=== PATIENT | female | born 1955 | race Asian ===

== ENCOUNTER 2018-02-21 17:17 | Emergency (ER) | payer OTHER ==
[~2018-02-21] VITALS: Ht 149.9 cm; Wt 54.5 kg
[2018-02-21] MEDS ORDERED: LISI-662 PO (17:38)
[2018-02-21] MEDS ORDERED: METF-960 PO (17:38)
[2018-02-21 17:44] LABS: GLUCOSE,POINT OF CARE 126 MG/DL (70-110)
[2018-02-21] MEDS ORDERED: ACETAMINOPHEN 500 MG TABLET PO ONE (18:30)
[2018-02-21] MEDS ORDERED: BACITRACIN 0.9 GM PACKET OINTMENT TP ONE (18:30)
[2018-02-21 19:15] VITALS: BP 133/72
== END 2018-02-21 19:39 | disposition home or self-care (01) ==
LOC: EMS 17:19
DX: T22.211A Burn of second degree of right forearm, initial encounter (principal); E11.9 Type 2 diabetes mellitus without complications; I10 Essential (primary) hypertension; Z79.899 Other long term (current) drug therapy; Z79.84 Long term (current) use of oral hypoglycemic drugs; Z86.73 Personal history of transient ischemic attack (TIA), and cerebral infarction without residual deficits; X10.2XXA Contact with fats and cooking oils, initial encounter; Y93.89 Activity, other specified; Y92.89 Other specified places as the place of occurrence of the external cause; Y99.8 Other external cause status

== ENCOUNTER 2021-06-02 17:04 | Inpatient (IN) | payer OTHER ==
[~2021-06-02] VITALS: Ht 157.5 cm; Wt 57.5 kg
[~2021-06-02 17:04] MED LIST: LISI-894 PO; METF-1211 PO
[2021-06-02] MEDS ORDERED: SODIUM CHLORIDE 0.9% 1,000 ML IV ONE (17:15)
[2021-06-02] MEDS ORDERED: ACETAMINOPHEN 500 MG TABLET PO ONE (17:15)
[2021-06-02 17:32] LABS: BASOPHILS % (AUTO) 0.1 % (0.0-2.0); EOSINOPHILS % (AUTO) 0 % (1.0-6.0); HEMATOCRIT 41.4 % (36-46); HEMOGLOBIN 13.9 g/dL (12.0-16.0); LYMPHOCYTES # (AUTO) 1.8 K/uL (1.0-4.8); LYMPHOCYTES % (AUTO) 21.4 % (22.0-44.0); MEAN CORPUSCULAR HEMOGLOBIN 30.7 pg (26.0-34.0); MEAN CORPUSCULAR HGB CONC 33.6 G/dL (31.0-37.0); MEAN CORPUSCULAR VOLUME 91 fL (80-100); MONOCYTES # (AUTO) 0.3 K/uL (0.1-1.0); MONOCYTES % (AUTO) 4.1 % (2.0-9.0); NEUTROPHILS # (AUTO) 6.3 K/uL (1.8-7.7); NEUTROPHILS % (AUTO) 74.4 % (40.0-70.0); PLATELET COUNT (AUTO) 203 K/uL (150-450); RED BLOOD CELL COUNT(AUTO) 4.53 MIL/uL (4.00-5.20)
[2021-06-02 17:34] LABS: COVID AG,FIA SOURCE NASOPHARYNGEAL
[2021-06-02 17:42] LABS: CALCIUM, TOTAL 8.7 mg/dL (8.8-10.5); CREATININE 1.19 mg/dL (0.60-1.30); POTASSIUM 3.5 mmol/L (3.5-5.1)
[2021-06-02 17:43] LABS: APPEARANCE,URINE CLEAR (CLEAR); BILIRUBIN,URINE NEGATIVE (NEGATIVE); GLUCOSE, URINE (UA) NEGATIVE (NEGATIVE); KETONES,URINE NEGATIVE (NEGATIVE); LEUKOCYTE ESTERASE ,URINE NEGATIVE (NEGATIVE); NITRATE,URINE NEGATIVE (NEGATIVE); OCCULT BLOOD,URINE NEGATIVE (NEGATIVE); PH,URINE 7.5 (5.0-8.0); PROTEIN,URINE TRACE mg/dL (NEGATIVE); SPECIFIC GRAVITIY, URINE 1.011 (1.003-1.030); UROBILINOGEN,URINE <=1.0 mg/dL (<=1.0)
[2021-06-02 17:48] LABS: ALBUMIN 3.5 g/dL (3.4-5.0); BILIRUBIN,TOTAL 0.6 mg/dL (0.1-1.0); TOTAL PROTEIN, SERUM 7.7 g/dL (6.4-8.2)
[2021-06-02 17:50] LABS: LACTIC ACID 1.4 mmol/L (0.4-2.0)
[2021-06-02 17:57] LABS: BACTERIA,URINE None Seen /HPF (None Seen); RBC,URINE None Seen /HPF (0-2); SQUAMOUS EPITHELIAL CELL,UR Few /LPF (None Seen); WBC,URINE 0-2 /HPF (0-5)
[2021-06-02] MEDS ORDERED: ACETAMINOPHEN 1000 MG/ISO-OSM 100 ML IV ONE (18:00)
[2021-06-02] MEDS ORDERED: ONDANSETRON HCL 4 MG/2 ML VIAL IVP ONE (18:00)
[2021-06-02] MEDS ORDERED: CefTRIAXone 1 GM/DEXTROSE 50 ML IV ONE (18:15)
[2021-06-02] MEDS ORDERED: AZITHROMYCIN 500 MG/NS 250 ML IV ONE (18:15)
[2021-06-02 18:45] LABS: INFLUENZA TYPE A NEGATIVE FOR TYPE A (NEGATIVE); INFLUENZA TYPE B NEGATIVE FOR TYPE B (NEGATIVE)
[2021-06-02] MEDS ORDERED: ACETAMINOPHEN 325 MG TABLET PO PRN (19:30)
[2021-06-02] MEDS ORDERED: ONDANSETRON HCL 4 MG/2 ML VIAL IVP PRN ×2 (19:30→22:00)
[2021-06-02] MEDS ORDERED: MAGNESIUM HYDROXIDE SUSPENSION 30 ML UDCUP PO PRN (22:00)
[2021-06-02] MEDS ORDERED: IPRATROPIUM BROMIDE 0.5 MG/2.5 ML NEB SOLUTION NEB PRN (22:00)
[2021-06-02] MEDS ORDERED: HYDROCODONE/ACETAMINOPHEN 5-325 MG TABLET PO PRN (22:00)
[2021-06-02] MEDS ORDERED: BISACODYL 10 MG RECTAL RECTAL SUPPOSITORY PR PRN (22:00)
[2021-06-02] MEDS ORDERED: MORPHINE SULFATE 2 MG/ML SYRINGE IVP PRN (22:00)
[2021-06-02] MEDS ORDERED: ZOLPIDEM TARTRATE 5 MG TABLET PO PRN (22:00)
[2021-06-02] MEDS ORDERED: ALBUTEROL SULFATE 2.5 MG/0.5 ML NEB SOLUTION NEB PRN (22:00)
[2021-06-02 22:36] LABS: LACTIC ACID 1.1 mmol/L (0.4-2.0)
[2021-06-02 23:08] VITALS: BP 148/82
[2021-06-03] MEDS: HEPARIN SODIUM,PORCINE 5,000 UNITS/ML VIAL SQ SCH ×4 (00:01→23:43)
[2021-06-03 04:00] VITALS: BP 126/72
[2021-06-03 06:53] LABS: BASOPHILS % (AUTO) 0.2 % (0.0-2.0); EOSINOPHILS % (AUTO) 0.1 % (1.0-6.0); HEMOGLOBIN 13.8 g/dL (12.0-16.0); LYMPHOCYTES # (AUTO) 1.1 K/uL (1.0-4.8); LYMPHOCYTES % (AUTO) 16.4 % (22.0-44.0); MEAN CORPUSCULAR HEMOGLOBIN 30.8 pg (26.0-34.0); MEAN CORPUSCULAR HGB CONC 33.7 G/dL (31.0-37.0); MEAN CORPUSCULAR VOLUME 91 fL (80-100); MONOCYTES # (AUTO) 0.3 K/uL (0.1-1.0); MONOCYTES % (AUTO) 4.6 % (2.0-9.0); NEUTROPHILS # (AUTO) 5.3 K/uL (1.8-7.7); NEUTROPHILS % (AUTO) 78.7 % (40.0-70.0); PLATELET COUNT (AUTO) 193 K/uL (150-450); RED BLOOD CELL COUNT(AUTO) 4.49 MIL/uL (4.00-5.20)
[2021-06-03 06:57] LABS: CALCIUM, TOTAL 7.7 mg/dL (8.8-10.5); CREATININE 0.99 mg/dL (0.60-1.30); POTASSIUM 3.3 mmol/L (3.5-5.1)
[2021-06-03 07:01] LABS: GLUCOMETER DEV NAME(LOC) 5S.2B; GLUCOSE,POINT OF CARE 113 MG/DL (70-110)
[2021-06-03 09:15] VITALS: BP 114/86
[2021-06-03] MEDS: LISINOPRIL 20 MG TABLET PO SCH (09:37)
[2021-06-03] MEDS: PANTOPRAZOLE SODIUM 40 MG/VIAL IVP SCH (09:38)
[2021-06-03 15:03] VITALS: BP 103/66
[2021-06-03] MEDS: CefTRIAXone SODIUM 2 GM in DEXTROSE 5%-WATER 50 ML IV SCH (17:35)
[2021-06-03] MEDS ORDERED: SODIUM CHLORIDE 0.9% 250 ML IV ONE (17:59)
[2021-06-03] MEDS ORDERED: POTASSIUM CHLORIDE 20 MEQ ER TABLET PO ONE (18:45)
[2021-06-03 20:45] VITALS: BP 103/66
[2021-06-03] MEDS: ACETAMINOPHEN 325 MG TABLET PO PRN (21:37)
[2021-06-04] VITALS: BP 104/67
[2021-06-04 05:35] VITALS: BP 99/57
[2021-06-04 06:21] LABS: GLUCOMETER DEV NAME(LOC) 5S.2B; GLUCOSE,POINT OF CARE 200 MG/DL (70-110)
[2021-06-04 09:03] VITALS: BP 106/65
[2021-06-04] MEDS: HEPARIN SODIUM,PORCINE 5,000 UNITS/ML VIAL SQ SCH ×3 (09:24→23:26)
[2021-06-04] MEDS: PANTOPRAZOLE SODIUM 40 MG/VIAL IVP SCH (09:24)
[2021-06-04] MEDS: LISINOPRIL 20 MG TABLET PO SCH (09:24)
[2021-06-04 09:53] LABS: CALCIUM, TOTAL 8.4 mg/dL (8.8-10.5); CREATININE 1.16 mg/dL (0.60-1.30); POTASSIUM 4.3 mmol/L (3.5-5.1)
[2021-06-04 11:59] VITALS: BP 115/74
[2021-06-04] MEDS: ACETAMINOPHEN 325 MG TABLET PO PRN ×2 (15:34→23:35)
[2021-06-04 16:40] VITALS: BP 116/70
[2021-06-04] MEDS: CefTRIAXone SODIUM 2 GM in DEXTROSE 5%-WATER 50 ML IV SCH (17:45)
[2021-06-04 20:00] VITALS: BP 138/78
[2021-06-04 20:06] LABS: GLUCOMETER DEV NAME(LOC) 5N.3; GLUCOSE,POINT OF CARE 129 MG/DL (70-110)
[2021-06-04] MEDS: TraMADol HCL 50 MG TABLET PO PRN (21:40)
[2021-06-05 00:08] VITALS: BP 117/62
[2021-06-05 04:46] VITALS: BP 128/72
[2021-06-05 08:02] VITALS: BP 123/79
[2021-06-05] MEDS: PANTOPRAZOLE SODIUM 40 MG/VIAL IVP SCH (08:33)
[2021-06-05] MEDS: HEPARIN SODIUM,PORCINE 5,000 UNITS/ML VIAL SQ SCH ×3 (08:33→23:18)
[2021-06-05] MEDS: LISINOPRIL 20 MG TABLET PO SCH (08:33)
[2021-06-05 11:49] VITALS: BP 133/80
[2021-06-05] MEDS: SODIUM CHLORIDE 0.45% 1,000 ML IV SCH (16:02)
[2021-06-05] MEDS: TraMADol HCL 50 MG TABLET PO PRN ×2 (16:02→20:19)
[2021-06-05 16:39] VITALS: BP 177/75
[2021-06-05] MEDS: CefTRIAXone SODIUM 2 GM in DEXTROSE 5%-WATER 50 ML IV SCH (18:31)
[2021-06-05 20:57] VITALS: BP 149/87
[2021-06-05] MEDS ORDERED: DEXTROSE 5%-0.45% SODIUM CHL 1,000 ML IV PRN (23:55)
[2021-06-06 00:29] VITALS: BP 146/79
[2021-06-06] MEDS: SODIUM CHLORIDE 0.45% 1,000 ML IV SCH (03:47)
[2021-06-06 04:00] VITALS: BP 150/83
[2021-06-06] MEDS ORDERED: SODIUM CHLORIDE 0.9% 1,000 ML IV SCH (06:45)
[2021-06-06] MEDS ORDERED: SODIUM CHLORIDE 0.9% 1,000 ML ONE (06:50)
[2021-06-06 07:36] LABS: GLUCOMETER DEV NAME(LOC) SDS.; GLUCOSE,POINT OF CARE 143 MG/DL (70-110)
[2021-06-06] MEDS: PANTOPRAZOLE SODIUM 40 MG/VIAL IVP SCH (09:28)
[2021-06-06] MEDS: HEPARIN SODIUM,PORCINE 5,000 UNITS/ML VIAL SQ SCH (09:28)
[2021-06-06] MEDS: LISINOPRIL 20 MG TABLET PO SCH (09:28)
[2021-06-06 09:39] VITALS: BP 148/98
[2021-06-06 11:26] VITALS: BP 158/81
[2021-06-06] MEDS ORDERED: CEPH500C3 PO (12:23)
[2021-06-06] MEDS ORDERED: PANT-31 PO (12:23)
== END 2021-06-06 13:30 | disposition home or self-care (01) | DRG 871 ==
LOC: EMS 17:04 → 5N 20:39
PROVIDERS: ADMIT Hospitalist; ATTEND Hospitalist
PROC: 0DJ08ZZ Inspection of Upper Intestinal Tract, Via Natural or Artificial Opening Endoscopic (ICD-10-PCS; principal; 2021-06-06 08:00)
DX: A41.9 Sepsis, unspecified organism (principal); J18.9 Pneumonia, unspecified organism; J96.01 Acute respiratory failure with hypoxia; G93.41 Metabolic encephalopathy; I10 Essential (primary) hypertension; E78.5 Hyperlipidemia, unspecified; E11.9 Type 2 diabetes mellitus without complications; K21.9 Gastro-esophageal reflux disease without esophagitis; E78.00 Pure hypercholesterolemia, unspecified; K29.70 Gastritis, unspecified, without bleeding; K83.8 Other specified diseases of biliary tract; Z20.822 Contact with and (suspected) exposure to COVID-19; Z86.73 Personal history of transient ischemic attack (TIA), and cerebral infarction without residual deficits; Z90.49 Acquired absence of other specified parts of digestive tract; Z79.84 Long term (current) use of oral hypoglycemic drugs
CPT/HCPCS: 51702; 70450; 71045; 71250; 72192; 74150; 80048; 80053; 81001; 82550; 82962; 83605; 84145; 84484; 85025; 87040; 87804; 88305; 88312; 93005; 99285; C9113; J0131; J0456; J0696; J1644; J2405; J7030; J7050; J7060; 36415-L1; 36415-TC

== ENCOUNTER 2023-06-20 03:46 | Emergency (ER) | payer OTHER ==
[~2023-06-20] VITALS: Ht 152.4 cm; Wt 52.3 kg
[~2023-06-20 03:46] MED LIST changes: +CEPH-558 PO; +PANT-31 PO
[2023-06-20 04:26] VITALS: TEMP 98.1
[2023-06-20] MEDS ORDERED: LIDO1ADH63 TP (04:41)
[2023-06-20] MEDS ORDERED: AMLO-257 PO (04:41)
[2023-06-20] MEDS ORDERED: BUPR1PAT23 TP (04:41)
[2023-06-20] MEDS ORDERED: TOPI-97 PO (04:41)
[2023-06-20] MEDS ORDERED: ROSU10TA72 PO (04:41)
[2023-06-20] MEDS ORDERED: DAPA5TAB PO (04:41)
[2023-06-20] MEDS ORDERED: SITA25 PO (04:41)
[2023-06-20] MEDS ORDERED: KETOROLAC TROMETHAMINE 30 MG/ML VIAL IVP ONE (05:15)
[2023-06-20 05:16] LABS: GLUCOMETER DEV NAME(LOC) ERT.5; GLUCOSE,POINT OF CARE 174 MG/DL (70-110)
[2023-06-20 05:28] LABS: BASOPHILS % (AUTO) 0.3 % (0.0-2.0); EOSINOPHILS % (AUTO) 0.1 % (1.0-6.0); HEMATOCRIT 43.7 % (36-46); HEMOGLOBIN 14.8 g/dL (12.0-16.0); LYMPHOCYTES # (AUTO) 1.4 K/uL (1.0-4.8); LYMPHOCYTES % (AUTO) 21.3 % (22.0-44.0); MEAN CORPUSCULAR HEMOGLOBIN 30.9 pg (26.0-34.0); MEAN CORPUSCULAR HGB CONC 33.9 G/dL (31.0-37.0); MEAN CORPUSCULAR VOLUME 91 fL (80-100); MONOCYTES # (AUTO) 0.2 K/uL (0.1-1.0); MONOCYTES % (AUTO) 3.7 % (2.0-9.0); NEUTROPHILS % (AUTO) 74.6 % (40.0-70.0); PLATELET COUNT (AUTO) 253 K/uL (150-450); RED BLOOD CELL COUNT(AUTO) 4.78 MIL/uL (4.00-5.20); WHITE BLOOD COUNT (AUTO) 6.7 K/uL (4.5-11.0)
[2023-06-20 05:39] LABS: CALCIUM, TOTAL 9.7 mg/dL (8.8-10.5); CREATININE 0.99 mg/dL (0.60-1.30); POTASSIUM 4.1 mmol/L (3.5-5.1)
[2023-06-20 05:45] LABS: ALBUMIN 3.4 g/dL (3.4-5.0); BILIRUBIN,TOTAL 0.6 mg/dL (0.1-1.0); TOTAL PROTEIN, SERUM 7.9 g/dL (6.4-8.2)
[2023-06-20 05:46] LABS: TROPONIN I-HIGH SENSITIVITY 6 ng/L (<51)
[2023-06-20] MEDS: KETOROLAC TROMETHAMINE 15 MG/ML VIAL IVP ONE (06:07)
[2023-06-20 06:16] LABS: APPEARANCE,URINE CLEAR (CLEAR); BILIRUBIN,URINE NEGATIVE (NEGATIVE); COLOR,URINE COLORLESS (YELLOW); GLUCOSE, URINE (UA) TRACE mg/dL (NEGATIVE); KETONES,URINE NEGATIVE (NEGATIVE); LEUKOCYTE ESTERASE ,URINE NEGATIVE (NEGATIVE); NITRATE,URINE NEGATIVE (NEGATIVE); OCCULT BLOOD,URINE NEGATIVE (NEGATIVE); PH,URINE 6.5 (5.0-8.0); PROTEIN,URINE NEGATIVE (NEGATIVE); SPECIFIC GRAVITIY, URINE 1.009 (1.003-1.030); UROBILINOGEN,URINE <=1.0 mg/dL (<=1.0)
[2023-06-20] MEDS: ACETAMINOPHEN 325 MG TABLET PO ONE (06:57)
[2023-06-20] MEDS: LIDOCAINE 5% TRANSDERMAL PATCH TD ONE (06:57)
[2023-06-20] MEDS: SODIUM CHLORIDE 0.9% 500 ML IV ONE (06:58)
[2023-06-20] MEDS: MORPHINE SULFATE 2 MG/ML SYRINGE IVP ONE (06:58)
[2023-06-20 07:26] LABS: COVID AG,FIA SOURCE NASAL SWAB
[2023-06-20] MEDS ORDERED: IBUP-1506 PO (07:37)
[2023-06-20 08:05] VITALS: BP 154/103; PULSE 97; RESP 18
[2023-06-20 08:08] LABS: SARS-COV2 (COVID) ANTIGEN,FIA Negative (Negative)
[2023-06-20 08:09] LABS: INFLUENZA TYPE A NEGATIVE FOR TYPE A (NEGATIVE); INFLUENZA TYPE B NEGATIVE FOR TYPE B (NEGATIVE)
== END 2023-06-20 08:30 | disposition home or self-care (01) ==
LOC: EMS 03:48
DX: M54.50 Low back pain, unspecified (principal); E11.9 Type 2 diabetes mellitus without complications; E78.00 Pure hypercholesterolemia, unspecified; I10 Essential (primary) hypertension; K21.9 Gastro-esophageal reflux disease without esophagitis; Z86.73 Personal history of transient ischemic attack (TIA), and cerebral infarction without residual deficits; Z20.822 Contact with and (suspected) exposure to COVID-19
CPT/HCPCS: 99285; 96374; 71045; 96361; 96375; 87426; 80053; 81003; 82550; 82962; 83880; 84484; 85025; 87804; 36415; 93005; J1885; J2270; J7040

== ENCOUNTER 2024-12-23 12:42 | Emergency (ER) | payer OTHER ==
[~2024-12-23] VITALS: Ht 149.9 cm; Wt 58.6 kg
[~2024-12-23 12:42] MED LIST changes: +AMLO-257 PO; -CEPH-558 PO; +DAPA5TAB PO; +GABA-1216 PO; +HYDR-3831 PO; +IBUP-1506 PO; +LID5O TP; -LISI-894 PO; -METF-1211 PO; +ROSU10TA98 PO; +SITA25 PO; +TOPI-97 PO
[2024-12-23 12:49] VITALS: TEMP 97.7
[2024-12-23 13:10] LABS: GLUCOMETER DEV NAME(LOC) ERT.7; GLUCOSE,POINT OF CARE 216 MG/DL (70-110)
[2024-12-23 13:11] LABS: COVID AG,FIA SOURCE NASAL SWAB
[2024-12-23 13:12] LABS: APPEARANCE,URINE CLEAR (CLEAR); GLUCOSE, URINE (UA) 300-500 mg/dL (NEGATIVE); LEUKOCYTE ESTERASE ,URINE NEGATIVE (NEGATIVE); NITRATE,URINE NEGATIVE (NEGATIVE); OCCULT BLOOD,URINE NEGATIVE (NEGATIVE); SPECIFIC GRAVITIY, URINE 1.004 (1.003-1.030)
[2024-12-23 13:28] LABS: CALCIUM, TOTAL 8.5 mg/dL (8.8-10.5); CREATININE 0.93 mg/dL (0.60-1.30); GLOMERULAR FILTR. RATE CALC 60.0 mL/min (>60); GLUCOSE,RANDOM 207.0 mg/dL (70-110); SODIUM SERUM 139.0 mmol/L (136-145); UREA NITROGEN, BLOOD 26.0 mg/dL (7-18)
[2024-12-23 13:44] LABS: PLATELET COUNT (AUTO) 211 K/uL (150-450); RED BLOOD CELL COUNT(AUTO) 4.80 MIL/uL (4.00-5.20); RED CELL DISTRIBUTION WIDTH 14.9 % (11.5-14.5); WHITE BLOOD COUNT (AUTO) 6.2 K/uL (4.5-11.0)
[2024-12-23 13:50] LABS: SARS-COV2 (COVID) ANTIGEN,FIA Negative (Negative)
[2024-12-23 13:51] LABS: INFLUENZA TYPE A NEGATIVE FOR TYPE A (NEGATIVE); INFLUENZA TYPE B NEGATIVE FOR TYPE B (NEGATIVE)
[2024-12-23 16:30] VITALS: BP 158/78; PULSE 68; RESP 15; O2SAT 99
== END 2024-12-23 17:46 | disposition home or self-care (01) ==
LOC: EMS 12:46
DX: G51.0 Bell's palsy (principal); R51.9 Headache, unspecified; E11.9 Type 2 diabetes mellitus without complications; E78.00 Pure hypercholesterolemia, unspecified; G30.9 Alzheimer's disease, unspecified; I10 Essential (primary) hypertension; Z86.73 Personal history of transient ischemic attack (TIA), and cerebral infarction without residual deficits; Z88.8 Allergy status to other drugs, medicaments and biological substances; Z79.899 Other long term (current) drug therapy; Z20.822 Contact with and (suspected) exposure to COVID-19
CPT/HCPCS: 70450; 80048; 81001; 82962; 85025; 87804; 99284